=== PATIENT | female | born 1950 | race Asian ===

== ENCOUNTER 2016-08-15 14:45 | Inpatient (IN) | payer MEDICARE, MEDICAID ==
[~2016-08-15] VITALS: Ht 154.9 cm; Wt 57.5 kg
[~2016-08-15 14:45] MED LIST: ACAR50TA11 PO; AMLO-512 PO; ATOR40TA28 PO; DOXA2TAB PO; FERR-72 PO; FURO40 PO; KRIL500C PO; METO25 PO; NATE120 PO; PHOSLOC PO
[2016-08-15] MEDS ORDERED: ASPI81 PO (15:06)
[2016-08-15 15:21] LABS: GLUCOSE,POINT OF CARE 247 MG/DL (70-110)
[2016-08-15 15:34] LABS: BASOPHILS % (AUTO) 0.2 % (0.0-2.0); EOSINOPHILS % (AUTO) 0 % (1.0-6.0); HEMATOCRIT 22.1 % (36-46); HEMOGLOBIN 7.3 g/dL (12.0-16.0); LYMPHOCYTES # (AUTO) 0.6 K/uL (1.0-4.8); LYMPHOCYTES % (AUTO) 4.7 % (22.0-44.0); MEAN CORPUSCULAR HEMOGLOBIN 29.7 pg (26.0-34.0); MEAN CORPUSCULAR VOLUME 90 fL (80-100); MONOCYTES # (AUTO) 0.8 K/uL (0.1-1.0); MONOCYTES % (AUTO) 6.6 % (2.0-9.0); NEUTROPHILS # (AUTO) 11.2 K/uL (1.8-7.7); PLATELET COUNT (AUTO) 231 K/uL (150-450); RED BLOOD CELL COUNT(AUTO) 2.46 MIL/uL (4.00-5.20); WHITE BLOOD COUNT (AUTO) 12.7 K/uL (4.5-11.0)
[2016-08-15 15:37] LABS: NEUTROPHILS % (AUTO) 88.5 % (40.0-70.0)
[2016-08-15 15:47] LABS: PROTHROMBIN TIME 10.2 SEC (9.4-11.6)
[2016-08-15 15:49] LABS: ANION GAP 16 mmol/L (8-16); CARBON DIOXIDE 19 mmol/L (22-29); CHLORIDE 99 mmol/L (98-107); CREATININE 5.57 mg/dL (0.60-1.30); GLOMERULAR FILTR. RATE CALC 8 mL/min (>60); POTASSIUM 4.5 mmol/L (3.5-5.1); SODIUM SERUM 134 mmol/L (136-145); UREA NITROGEN, BLOOD 89 mg/dL (7-18)
[2016-08-15] MEDS ORDERED: FUROSEMIDE 40 MG/4 ML VIAL IVP ONE (16:00)
[2016-08-15 16:13] LABS: ALANINE AMINOTRANSFERASE 35 U/L (12-78); ASPARTATE AMINOTRANSFERASE 26 U/L (15-37); BILIRUBIN,TOTAL 0.6 mg/dL (0.1-1.0); CREATINE KINASE MB 4.8 ng/mL (0-5); CREATINE KINASE, TOTAL 191 U/L (26-192); TOTAL PROTEIN, SERUM 7.6 g/dL (6.4-8.2)
[2016-08-15] MEDS ORDERED: PANTOPRAZOLE SODIUM 40 MG/VIAL IVP ONE (16:15)
[2016-08-15 16:27] LABS: ABG A-A DIFF O2 123.3 mmHg (10-20.0); ABG BASE EXCESS -6.5 mmol/L (-2.0-3.0); ABG HCO3 19.3 mmol/L (22.0-26.0); ABG OXYHEMOGLOBIN 72.3 % (94.0-100.0); ABG PCO2 31 mmHg (35-45); ABG PH 7.395 (7.35-7.450); TEMPERATURE, FAHRENHEIT, BG 98.6 FAHREN (96.0-98.6)
[2016-08-15 17:00] LABS: APPEARANCE,URINE CLOUDY (CLEAR); GLUCOSE, URINE (UA) 250 mg/dL (NEGATIVE); KETONES,URINE NEGATIVE (NEGATIVE); LEUKOCYTE ESTERASE ,URINE SMALL (NEGATIVE); OCCULT BLOOD,URINE MODERATE (NEGATIVE); PH,URINE 5.5 (5.0-8.0); PROTEIN,URINE SEE CONFIRM (NEGATIVE)
[2016-08-15 17:38] LABS: WBC,URINE 51-100 /HPF (0-5)
[2016-08-15 17:39] LABS: SULFOSALICYLIC ACID,URINE 2+ (Negative)
[2016-08-15] MEDS ORDERED: SODIUM CHLORIDE 0.9% 500 ML IV ONE (18:25)
[2016-08-15] MEDS ORDERED: ALBUTEROL SULFATE 2.5 MG/0.5 ML NEB SOLUTION NEB PRN (18:30)
[2016-08-15] MEDS ORDERED: BISACODYL 10 MG RECTAL RECTAL SUPPOSITORY PR PRN (18:30)
[2016-08-15] MEDS ORDERED: ONDANSETRON HCL 4 MG/2 ML VIAL IVP PRN (18:30)
[2016-08-15] MEDS ORDERED: ZOLPIDEM TARTRATE 5 MG TABLET PO PRN (18:30)
[2016-08-15] MEDS ORDERED: IPRATROPIUM BROMIDE 0.5 MG/2.5 ML NEB SOLUTION NEB PRN (18:30)
[2016-08-15] MEDS ORDERED: MAGNESIUM HYDROXIDE SUSPENSION 30 ML UDCUP PO PRN (18:30)
[2016-08-15] MEDS ORDERED: ACETAMINOPHEN 325 MG TABLET PO PRN (18:45)
[2016-08-15] MEDS ORDERED: HEPARIN SODIUM,PORCINE 5,000 UNITS/ML VIAL IVP PRN ×3 (18:45→19:49)
[2016-08-15] MEDS ORDERED: DEXTROSE 50%-WATER 25 GM/50 ML SYRINGE IVP PRN (18:45)
[2016-08-15] MEDS ORDERED: MORPHINE SULFATE 2 MG/ML SYRINGE IVP PRN ×2 (18:45)
[2016-08-15] MEDS ORDERED: HEPARIN SODIUM,PORCINE 5,000 UNITS/ML VIAL IVP ONE (18:45)
[2016-08-15 18:54] VITALS: BP 180/80
[2016-08-15 19:15] VITALS: BP 155/77
[2016-08-15] MEDS: NITROGLYCERIN 2% (1 GM=INCH) PACKET TP SCH (19:19)
[2016-08-15] MEDS: CefTRIAXone 1 GM/DEXTROSE 50 ML IV SCH (19:26)
[2016-08-15 19:30] VITALS: BP 163/80
[2016-08-15] MEDS: HEPARIN SODIUM 25000 UNITS/D5W 250 ML IV PRN (19:59)
[2016-08-15 20:00] VITALS: BP 156/78
[2016-08-15] MEDS: ATORVASTATIN CALCIUM 40 MG TABLET PO SCH (21:00)
[2016-08-15 21:20] LABS: HEMOGLOBIN 8.9 g/dL (12.0-16.0)
[2016-08-15 21:58] LABS: CREATINE KINASE MB 7.6 ng/mL (0-5)
[2016-08-15] MEDS ORDERED: NITROGLYCERIN 50 MG/D5% WATER 250 ML ONE (22:52)
[2016-08-15] MEDS: METOPROLOL TARTRATE 25 MG TABLET PO SCH (23:06)
[2016-08-15] MEDS: NITROGLYCERIN 50 MG/D5% WATER 250 ML IV PRN (23:07)
[2016-08-16] VITALS: BP 151/53
[2016-08-16] MEDS: NITROGLYCERIN 2% (1 GM=INCH) PACKET TP SCH ×5 (00:58→23:25)
[2016-08-16 03:37] LABS: GLUCOSE COMMENT 1 Received Meds; GLUCOSE,POINT OF CARE 192 MG/DL (70-110)
[2016-08-16 04:00] VITALS: BP 163/71
[2016-08-16] MEDS: METOPROLOL TARTRATE 25 MG TABLET PO SCH ×2 (05:46→21:29)
[2016-08-16] MEDS: INSULIN ASPART 100 UNITS/ML SQ PRN (05:50)
[2016-08-16 05:54] LABS: BASOPHILS % (AUTO) 0.5 % (0.0-2.0); EOSINOPHILS % (AUTO) 0 % (1.0-6.0); HEMATOCRIT 23.2 % (36-46); HEMOGLOBIN 7.7 g/dL (12.0-16.0); LYMPHOCYTES # (AUTO) 0.6 K/uL (1.0-4.8); LYMPHOCYTES % (AUTO) 3.4 % (22.0-44.0); MEAN CORPUSCULAR HEMOGLOBIN 29.9 pg (26.0-34.0); MEAN CORPUSCULAR HGB CONC 33.2 G/dL (31.0-37.0); MEAN CORPUSCULAR VOLUME 90 fL (80-100); MONOCYTES # (AUTO) 1.1 K/uL (0.1-1.0); MONOCYTES % (AUTO) 6.2 % (2.0-9.0); NEUTROPHILS # (AUTO) 15.4 K/uL (1.8-7.7); PLATELET COUNT (AUTO) 193 K/uL (150-450); RED BLOOD CELL COUNT(AUTO) 2.58 MIL/uL (4.00-5.20); WHITE BLOOD COUNT (AUTO) 17.1 K/uL (4.5-11.0)
[2016-08-16 05:58] LABS: GLUCOSE COMMENT 1 Received Meds; GLUCOSE,POINT OF CARE 214 MG/DL (70-110)
[2016-08-16 06:00] LABS: INR 1.1 (0.9-1.1); PROTHROMBIN TIME 11.1 SEC (9.4-11.6)
[2016-08-16 06:17] LABS: NEUTROPHILS % (AUTO) 89.9 % (40.0-70.0)
[2016-08-16 06:40] LABS: CALCIUM, TOTAL 8.4 mg/dL (8.8-10.5); CHOL/HDL RATIO 2.9 (3.9-5.7); CREATINE KINASE MB 6.8 ng/mL (0-5); CREATININE 5.74 mg/dL (0.60-1.30); MAGNESIUM 2.2 mg/dL (1.80-2.40); POTASSIUM 4.2 mmol/L (3.5-5.1); THYROID STIMULATING HORMONE 1.76 uIU/mL (0.36-3.74)
[2016-08-16 07:43] LABS: ALBUMIN 2.7 g/dL (3.4-5.0); BILIRUBIN,TOTAL 0.8 mg/dL (0.1-1.0)
[2016-08-16 07:47] LABS: HEMOGLOBIN A1C 7.4 % (4.5-6.2)
[2016-08-16 08:00] VITALS: BP 127/69
[2016-08-16 08:15] LABS: ABG A-A DIFF O2 602.4 mmHg (10-20.0); ABG BASE EXCESS -6.8 mmol/L (-2.0-3.0); ABG HCO3 19.5 mmol/L (22.0-26.0); ABG OXYHEMOGLOBIN 94.2 % (94.0-100.0); ABG PCO2 30 mmHg (35-45); ABG PH 7.394 (7.35-7.450); TEMPERATURE, FAHRENHEIT, BG 98.6 FAHREN (96.0-98.6)
[2016-08-16 08:17] LABS: ALLEN TEST, BLOOD GAS Positive
[2016-08-16] MEDS: NITROGLYCERIN 50 MG/D5% WATER 250 ML IV PRN ×3 (08:20→23:26)
[2016-08-16] MEDS: ASPIRIN 81 MG CHEWABLE TABLET PO SCH (08:28)
[2016-08-16] MEDS ORDERED: FUROSEMIDE 40 MG/4 ML VIAL IVP ONE ×2 (09:00→12:00)
[2016-08-16] MEDS ORDERED: PANTOPRAZOLE SODIUM 40 MG/VIAL IVP SCH ×2 (09:00)
[2016-08-16] MEDS ORDERED: FUROSEMIDE 20 MG/2 ML VIAL IVP SCH (09:00)
[2016-08-16] MEDS ORDERED: SODIUM CHLORIDE 0.9% 500 ML IV ONE (09:22)
[2016-08-16] MEDS: ACETYLCYSTEINE 20% 200 MG/ML 4 ML ORAL SOLUTION PO SCH ×2 (10:15→21:36)
[2016-08-16] MEDS ORDERED: HEPARIN SODIUM 1000 UNITS/NS 500 ML ONE ×2 (10:41→10:42)
[2016-08-16] MEDS ORDERED: IOHEXOL 300 MG/ML 150 ML VIAL ONE (10:41)
[2016-08-16] MEDS ORDERED: LIDOCAINE HCL/PF 1% 30 ML VIAL ONE (10:41)
[2016-08-16] MEDS ORDERED: SODIUM BICARBONATE 50 MEQ/50 ML VIAL ONE (10:41)
[2016-08-16] MEDS: EPOETIN ALFA 10,000 UNITS/ML VIAL SQ SCH (11:46)
[2016-08-16 12:00] VITALS: BP 142/67
[2016-08-16] MEDS ORDERED: HEPARIN SODIUM,PORCINE 1,000 UNITS/ML VIAL IVP ONE (12:00)
[2016-08-16] MEDS ORDERED: HEPARIN SODIUM,PORCINE 1,000 UNITS/ML VIAL ONE (12:43)
[2016-08-16] MEDS ORDERED: 0.9% SODIUM CHLORIDE 10 ML SYRINGE IVP PRN (13:30)
[2016-08-16 16:00] VITALS: BP 148/114
[2016-08-16 17:44] LABS: CREATINE KINASE MB 6.4 ng/mL (0-5)
[2016-08-16] MEDS ORDERED: SODIUM CHLORIDE 0.9% 250 ML IV ONE (17:58)
[2016-08-16] MEDS: CefTRIAXone 1 GM/DEXTROSE 50 ML IV SCH (18:18)
[2016-08-16] MEDS ORDERED: INSULIN DETEMIR 100 UNITS/ML SQ SCH (21:00)
[2016-08-16] MEDS: PANTOPRAZOLE SODIUM 40 MG/VIAL IVP SCH (21:29)
[2016-08-16] MEDS: ATORVASTATIN CALCIUM 40 MG TABLET PO SCH (21:29)
[2016-08-16] MEDS: FUROSEMIDE 20 MG/2 ML VIAL IVP SCH (21:30)
[2016-08-16] MEDS: HEPARIN SODIUM 25000 UNITS/D5W 250 ML IV PRN (22:59)
[2016-08-17] VITALS (9 sets, daily range): BP systolic 93–149; BP diastolic 50–106
[2016-08-17 05:28] LABS: BASOPHILS % (AUTO) 0.1 % (0.0-2.0); EOSINOPHILS % (AUTO) 0.1 % (1.0-6.0); HEMATOCRIT 26.6 % (36-46); HEMOGLOBIN 8.9 g/dL (12.0-16.0); LYMPHOCYTES # (AUTO) 0.9 K/uL (1.0-4.8); LYMPHOCYTES % (AUTO) 5.7 % (22.0-44.0); MEAN CORPUSCULAR HEMOGLOBIN 29.5 pg (26.0-34.0); MEAN CORPUSCULAR HGB CONC 33.4 G/dL (31.0-37.0); MEAN CORPUSCULAR VOLUME 88 fL (80-100); MONOCYTES # (AUTO) 1.3 K/uL (0.1-1.0); MONOCYTES % (AUTO) 8.6 % (2.0-9.0); NEUTROPHILS # (AUTO) 13.1 K/uL (1.8-7.7); PLATELET COUNT (AUTO) 193 K/uL (150-450); RED CELL DISTRIBUTION WIDTH 14.8 % (11.5-14.5); WHITE BLOOD COUNT (AUTO) 15.3 K/uL (4.5-11.0)
[2016-08-17 05:50] LABS: IRON, SERUM 27 mcg/dL (50-175); TOTAL IRON BINDING CAPACITY 193 mcg/dL (250-450)
[2016-08-17 06:08] LABS: ANION GAP 11 mmol/L (8-16); CALCIUM, TOTAL 8.8 mg/dL (8.8-10.5); CARBON DIOXIDE 27 mmol/L (22-29); CHLORIDE 97 mmol/L (98-107); CREATINE KINASE MB 1.8 ng/mL (0-5); CREATINE KINASE, TOTAL 189 U/L (26-192); CREATININE 4.68 mg/dL (0.60-1.30); GLOMERULAR FILTR. RATE CALC 9 mL/min (>60); PHOSPHORUS 4.8 mg/dL (2.5-4.9); POTASSIUM 4.2 mmol/L (3.5-5.1); SODIUM SERUM 135 mmol/L (136-145); THYROID STIMULATING HORMONE 1.74 uIU/mL (0.36-3.74); UREA NITROGEN, BLOOD 58 mg/dL (7-18)
[2016-08-17] MEDS: NITROGLYCERIN 2% (1 GM=INCH) PACKET TP SCH ×2 (06:26→12:00)
[2016-08-17] MEDS: INSULIN ASPART 100 UNITS/ML SQ PRN ×3 (06:28→21:09)
[2016-08-17 06:50] LABS: NEUTROPHILS % (AUTO) 85.5 % (40.0-70.0)
[2016-08-17] MEDS: NITROGLYCERIN 50 MG/D5% WATER 250 ML IV PRN ×2 (07:06→16:32)
[2016-08-17] MEDS ORDERED: SODIUM CHLORIDE 0.9% 2,000 ML IV ONE (07:54)
[2016-08-17] MEDS ORDERED: HEPARIN SODIUM,PORCINE 1,000 UNITS/ML VIAL IVP ONE ×3 (08:45→17:49)
[2016-08-17] MEDS: PANTOPRAZOLE SODIUM 40 MG/VIAL IVP SCH ×2 (08:48→21:05)
[2016-08-17] MEDS: FUROSEMIDE 20 MG/2 ML VIAL IVP SCH ×2 (08:48→21:05)
[2016-08-17] MEDS: ASPIRIN 81 MG CHEWABLE TABLET PO SCH (08:49)
[2016-08-17] MEDS: METOPROLOL TARTRATE 25 MG TABLET PO SCH ×2 (09:00→21:05)
[2016-08-17 09:32] LABS: GLUCOSE,POINT OF CARE 128 MG/DL (70-110)
[2016-08-17] MEDS ORDERED: SODIUM CHLORIDE 0.9% 250 ML IV ONE ×2 (09:48→16:21)
[2016-08-17 11:07] LABS: GLUCOSE,POINT OF CARE 163 MG/DL (70-110)
[2016-08-17] MEDS: VITAMIN B COMP/VIT C/FOLIC ACID CAPSULE PO SCH (12:00)
[2016-08-17] MEDS: SOD FERRIC GLUC COMPLX/SUCROSE 125 MG in SODIUM CHLORIDE 0.9% 100 ML IV SCH (12:18)
[2016-08-17 14:34] LABS: ABG A-A DIFF O2 108.5 mmHg (10-20.0); ABG BASE EXCESS -0.1 mmol/L (-2.0-3.0); ABG HCO3 24.8 mmol/L (22.0-26.0); ABG OXYHEMOGLOBIN 95.6 % (94.0-100.0); ABG PCO2 33 mmHg (35-45); ABG PH 7.471 (7.35-7.450); ALLEN TEST, BLOOD GAS Positive; TEMPERATURE, FAHRENHEIT, BG 98.1 FAHREN (96.0-98.6)
[2016-08-17] MEDS: HEPARIN SODIUM 25000 UNITS/D5W 250 ML IV PRN (16:32)
[2016-08-17] MEDS: CefTRIAXone 1 GM/DEXTROSE 50 ML IV SCH (18:49)
[2016-08-17] MEDS: ATORVASTATIN CALCIUM 40 MG TABLET PO SCH (21:05)
[2016-08-17] MEDS: INSULIN DETEMIR 100 UNITS/ML SQ SCH (21:06)
[2016-08-18] VITALS: BP 147/69
[2016-08-18 04:00] VITALS: BP 138/79
[2016-08-18 05:55] LABS: BASOPHILS # (AUTO) 0.03 K/uL (0.00-0.20); BASOPHILS % (AUTO) 0.2 % (0.0-2.0); EOSINOPHILS % (AUTO) 2.17 % (1.0-6.0); HEMATOCRIT 30.8 % (36-46); HEMOGLOBIN 10.3 g/dL (12.0-16.0); LYMPHOCYTES # (AUTO) 1.1 K/uL (1.0-4.8); LYMPHOCYTES % (AUTO) 8.2 % (22.0-44.0); MEAN CORPUSCULAR HEMOGLOBIN 29.5 pg (26.0-34.0); MEAN CORPUSCULAR HGB CONC 33.5 G/dL (31.0-37.0); MEAN CORPUSCULAR VOLUME 88 fL (80-100); MONOCYTES # (AUTO) 1.6 K/uL (0.1-1.0); MONOCYTES % (AUTO) 11.4 % (2.0-9.0); NEUTROPHILS # (AUTO) 10.8 K/uL (1.8-7.7); PLATELET COUNT (AUTO) 194 K/uL (150-450); RED BLOOD CELL COUNT(AUTO) 3.51 MIL/uL (4.00-5.20); RED CELL DISTRIBUTION WIDTH 15.2 % (11.5-14.5); WHITE BLOOD COUNT (AUTO) 13.8 K/uL (4.5-11.0)
[2016-08-18 06:34] LABS: ANION GAP 12 mmol/L (8-16); CALCIUM, TOTAL 8.9 mg/dL (8.8-10.5); CARBON DIOXIDE 26 mmol/L (22-29); CHLORIDE 96 mmol/L (98-107); CREATINE KINASE MB 0.8 ng/mL (0-5); CREATINE KINASE, TOTAL 97 U/L (26-192); CREATININE 4.22 mg/dL (0.60-1.30); GLOMERULAR FILTR. RATE CALC 11 mL/min (>60); PHOSPHORUS 4.5 mg/dL (2.5-4.9); POTASSIUM 3.4 mmol/L (3.5-5.1); SODIUM SERUM 134 mmol/L (136-145); UREA NITROGEN, BLOOD 45 mg/dL (7-18)
[2016-08-18 07:45] LABS: B-TYPE NATRIURETIC PEPTIDE 174 pg/mL (0-100)
[2016-08-18 08:00] VITALS: BP 163/78
[2016-08-18] MEDS ORDERED: SODIUM CHLORIDE 0.9% 100 ML ONE (08:39)
[2016-08-18] MEDS: VITAMIN B COMP/VIT C/FOLIC ACID CAPSULE PO SCH (08:42)
[2016-08-18] MEDS: METOPROLOL TARTRATE 25 MG TABLET PO SCH (08:42)
[2016-08-18] MEDS: FUROSEMIDE 20 MG/2 ML VIAL IVP SCH ×2 (08:42→21:39)
[2016-08-18] MEDS: PANTOPRAZOLE SODIUM 40 MG/VIAL IVP SCH ×2 (08:42→21:39)
[2016-08-18] MEDS: NITROGLYCERIN 50 MG/D5% WATER 250 ML IV PRN (08:43)
[2016-08-18] MEDS: ASPIRIN 81 MG CHEWABLE TABLET PO SCH (09:00)
[2016-08-18] MEDS: SOD FERRIC GLUC COMPLX/SUCROSE 125 MG in SODIUM CHLORIDE 0.9% 100 ML IV SCH (11:44)
[2016-08-18] MEDS: ACETYLCYSTEINE 20% 200 MG/ML 4 ML ORAL SOLUTION PO SCH ×2 (11:44→21:40)
[2016-08-18] MEDS: INSULIN ASPART 100 UNITS/ML SQ PRN ×3 (11:44→21:41)
[2016-08-18 11:47] LABS: GLUCOSE,POINT OF CARE 102 MG/DL (70-110)
[2016-08-18 11:47] LABS: GLUCOSE COMMENT 1 Received Meds; GLUCOSE,POINT OF CARE 212 MG/DL (70-110)
[2016-08-18 11:47] LABS: GLUCOSE COMMENT 1 Received Meds; GLUCOSE,POINT OF CARE 185 MG/DL (70-110)
[2016-08-18 12:00] VITALS: BP 161/76
[2016-08-18 16:00] VITALS: BP 145/65
[2016-08-18] MEDS: HEPARIN SODIUM 25000 UNITS/D5W 250 ML IV PRN (16:26)
[2016-08-18] MEDS: CefTRIAXone 1 GM/DEXTROSE 50 ML IV SCH (18:04)
[2016-08-18] MEDS: ATORVASTATIN CALCIUM 40 MG TABLET PO SCH (21:40)
[2016-08-18] MEDS: METOPROLOL TARTRATE 50 MG TABLET PO SCH (21:40)
[2016-08-18] MEDS: INSULIN DETEMIR 100 UNITS/ML SQ SCH (21:43)
[2016-08-19] MEDS: NITROGLYCERIN 50 MG/D5% WATER 250 ML IV PRN (00:26)
[2016-08-19 05:05] LABS: BASOPHILS % (AUTO) 0.2 % (0.0-2.0); EOSINOPHILS % (AUTO) 2.9 % (1.0-6.0); HEMATOCRIT 31.3 % (36-46); HEMOGLOBIN 10.4 g/dL (12.0-16.0); LYMPHOCYTES # (AUTO) 1.2 K/uL (1.0-4.8); LYMPHOCYTES % (AUTO) 11.9 % (22.0-44.0); MEAN CORPUSCULAR HEMOGLOBIN 29.6 pg (26.0-34.0); MEAN CORPUSCULAR HGB CONC 33.2 G/dL (31.0-37.0); MEAN CORPUSCULAR VOLUME 89 fL (80-100); MONOCYTES # (AUTO) 1.4 K/uL (0.1-1.0); MONOCYTES % (AUTO) 13.6 % (2.0-9.0); NEUTROPHILS # (AUTO) 7.4 K/uL (1.8-7.7); NEUTROPHILS % (AUTO) 71.4 % (40.0-70.0); PLATELET COUNT (AUTO) 206 K/uL (150-450); RED BLOOD CELL COUNT(AUTO) 3.51 MIL/uL (4.00-5.20); RED CELL DISTRIBUTION WIDTH 14.5 % (11.5-14.5); WHITE BLOOD COUNT (AUTO) 10.4 K/uL (4.5-11.0)
[2016-08-19 05:21] LABS: ANION GAP 13 mmol/L (8-16); CALCIUM, TOTAL 8.4 mg/dL (8.8-10.5); CARBON DIOXIDE 26 mmol/L (22-29); CHLORIDE 96 mmol/L (98-107); CREATINE KINASE, TOTAL 70 U/L (26-192); CREATININE 5.86 mg/dL (0.60-1.30); GLOMERULAR FILTR. RATE CALC 7 mL/min (>60); PHOSPHORUS 4.9 mg/dL (2.5-4.9); POTASSIUM 3.5 mmol/L (3.5-5.1); SODIUM SERUM 135 mmol/L (136-145); UREA NITROGEN, BLOOD 69 mg/dL (7-18)
[2016-08-19 07:04] LABS: B-TYPE NATRIURETIC PEPTIDE 217 pg/mL (0-100)
[2016-08-19] MEDS: VITAMIN B COMP/VIT C/FOLIC ACID CAPSULE PO SCH (09:00)
[2016-08-19] MEDS: METOPROLOL TARTRATE 50 MG TABLET PO SCH ×2 (09:00→21:00)
[2016-08-19] MEDS: ASPIRIN 81 MG CHEWABLE TABLET PO SCH (09:00)
[2016-08-19] MEDS: PANTOPRAZOLE SODIUM 40 MG/VIAL IVP SCH ×2 (09:02→21:03)
[2016-08-19] MEDS: EPOETIN ALFA 10,000 UNITS/ML VIAL SQ SCH (09:02)
[2016-08-19] MEDS: FUROSEMIDE 20 MG/2 ML VIAL IVP SCH ×2 (09:04→21:02)
[2016-08-19] MEDS ORDERED: HEPARIN SODIUM 1000 UNITS/NS 1,000 ML ONE (10:41)
[2016-08-19] MEDS ORDERED: IOHEXOL 300 MG/ML 150 ML VIAL ONE (10:41)
[2016-08-19] MEDS ORDERED: LIDOCAINE HCL/PF 1% 30 ML VIAL ONE (10:41)
[2016-08-19] MEDS ORDERED: SODIUM BICARBONATE 50 MEQ/50 ML VIAL ONE (10:41)
[2016-08-19 11:08] VITALS: BP 139/69
[2016-08-19] MEDS ORDERED: FentaNYL CITRATE-PF 100 MCG/2 ML VIAL ONE (11:17)
[2016-08-19] MEDS ORDERED: NITROGLYCERIN 50 MG/D5% WATER 250 ML ONE (11:18)
[2016-08-19] MEDS ORDERED: MIDAZOLAM HCL 2 MG/2 ML VIAL ONE (11:18)
[2016-08-19] MEDS ORDERED: VERAPAMIL HCL 2.5 MG/ML 2 ML VIAL ONE (11:18)
[2016-08-19] MEDS ORDERED: SODIUM CHLORIDE 0.9% 2,000 ML IV ONE (11:26)
[2016-08-19] MEDS ORDERED: HEPARIN SODIUM 1000 UNITS/NS 1,000 ML IARTER ONE (11:47)
[2016-08-19] MEDS ORDERED: SODIUM CHLORIDE 0.9% 500 ML IV ONE (11:47)
[2016-08-19] MEDS ORDERED: IOHEXOL 300 MG/ML 150 ML VIAL IARTER ONE (12:00)
[2016-08-19] MEDS ORDERED: LIDOCAINE 1% 30 ML/SOD BICARB 8.4% 4 ML SQ ONE (12:00)
[2016-08-19] MEDS ORDERED: HydrALAZINE HCL 20 MG/ML VIAL ONE (12:02)
[2016-08-19] MEDS ORDERED: HydrALAZINE HCL 20 MG/ML VIAL IVP ONE (12:15)
[2016-08-19] MEDS ORDERED: LISINOPRIL 5 MG TABLET PO ONE (16:15)
[2016-08-19] MEDS ORDERED: SODIUM CHLORIDE 0.9% 250 ML IV ONE (17:04)
[2016-08-19 17:33] LABS: GLUCOSE,POINT OF CARE 157 MG/DL (70-110)
[2016-08-19 17:33] LABS: GLUCOSE,POINT OF CARE 153 MG/DL (70-110)
[2016-08-19 17:33] LABS: GLUCOSE,POINT OF CARE 118 MG/DL (70-110)
[2016-08-19 17:33] LABS: GLUCOSE,POINT OF CARE 101 MG/DL (70-110)
[2016-08-19] MEDS: SOD FERRIC GLUC COMPLX/SUCROSE 125 MG in SODIUM CHLORIDE 0.9% 100 ML IV SCH (18:05)
[2016-08-19] MEDS: CefTRIAXone 1 GM/DEXTROSE 50 ML IV SCH (18:05)
[2016-08-19] MEDS ORDERED: HEPARIN SODIUM,PORCINE 1,000 UNITS/ML VIAL IVP ONE (18:27)
[2016-08-19] MEDS ORDERED: LISINOPRIL 5 MG TABLET PO SCH (21:00)
[2016-08-19] MEDS: ATORVASTATIN CALCIUM 40 MG TABLET PO SCH (21:02)
[2016-08-19] MEDS: INSULIN ASPART 100 UNITS/ML SQ PRN (21:08)
[2016-08-19] MEDS: INSULIN DETEMIR 100 UNITS/ML SQ SCH (21:12)
[2016-08-20 00:17] LABS: GLUCOSE COMMENT 1 Received Meds; GLUCOSE,POINT OF CARE 115 MG/DL (70-110)
[2016-08-20 00:17] LABS: GLUCOSE COMMENT 1 Received Meds; GLUCOSE,POINT OF CARE 171 MG/DL (70-110)
[2016-08-20 00:18] LABS: GLUCOSE COMMENT 1 Received Meds; GLUCOSE,POINT OF CARE 218 MG/DL (70-110)
[2016-08-20 00:22] LABS: GLUCOSE COMMENT 1 Received Meds; GLUCOSE,POINT OF CARE 230 MG/DL (70-110)
[2016-08-20 00:22] LABS: GLUCOSE,POINT OF CARE 178 MG/DL (70-110)
[2016-08-20] MEDS: NITROGLYCERIN 50 MG/D5% WATER 250 ML IV PRN (00:49)
[2016-08-20 05:31] LABS: CALCIUM, TOTAL 8.9 mg/dL (8.8-10.5); CREATININE 4.28 mg/dL (0.60-1.30); MAGNESIUM 1.7 mg/dL (1.80-2.40); PHOSPHORUS 5.5 mg/dL (2.5-4.9); POTASSIUM 3.9 mmol/L (3.5-5.1)
[2016-08-20] MEDS ORDERED: MAGNESIUM SULFATE 1 GM in DEXTROSE 5%-WATER 50 ML IV ONE (08:00)
[2016-08-20] MEDS: ASPIRIN 325 MG TABLET PO SCH (08:23)
[2016-08-20] MEDS: VITAMIN B COMP/VIT C/FOLIC ACID CAPSULE PO SCH (08:23)
[2016-08-20] MEDS: PANTOPRAZOLE SODIUM 40 MG/VIAL IVP SCH ×2 (08:23→20:22)
[2016-08-20] MEDS: FUROSEMIDE 20 MG/2 ML VIAL IVP SCH ×2 (08:24→20:21)
[2016-08-20] MEDS: METOPROLOL TARTRATE 50 MG TABLET PO SCH ×2 (08:25→21:21)
[2016-08-20 08:37] LABS: GLUCOSE,POINT OF CARE 130 MG/DL (70-110)
[2016-08-20] MEDS: LISINOPRIL 10 MG TABLET PO SCH ×2 (08:45→21:21)
[2016-08-20] MEDS: SOD FERRIC GLUC COMPLX/SUCROSE 125 MG in SODIUM CHLORIDE 0.9% 100 ML IV SCH (11:43)
[2016-08-20] MEDS: INSULIN ASPART 100 UNITS/ML SQ PRN ×3 (11:44→21:25)
[2016-08-20] MEDS: ISOSORBIDE MONONITRATE 30 MG ER TABLET PO SCH (12:01)
[2016-08-20] MEDS ORDERED: FentaNYL CITRATE-PF 100 MCG/2 ML VIAL ONE (13:49)
[2016-08-20] MEDS ORDERED: MIDAZOLAM HCL 2 MG/2 ML VIAL ONE (13:50)
[2016-08-20] MEDS ORDERED: LIDOCAINE HCL 1%/EPI 1:200,000/PF 10 ML VIAL ONE ×2 (13:50→15:01)
[2016-08-20] MEDS ORDERED: HEPARIN SODIUM,PORCINE 1,000 UNITS/ML 10 ML VIAL ONE (13:50)
[2016-08-20] MEDS ORDERED: HEPARIN SODIUM 1000 UNITS/NS 0 ML ONE (13:50)
[2016-08-20] MEDS ORDERED: FentaNYL CITRATE-PF 100 MCG/2 ML VIAL IVP ONE (14:36)
[2016-08-20] MEDS ORDERED: MIDAZOLAM HCL 2 MG/2 ML VIAL IVP ONE (14:36)
[2016-08-20 16:05] VITALS: BP 164/70
[2016-08-20 19:21] VITALS: BP 143/87
[2016-08-20] MEDS ORDERED: SODIUM CHLORIDE 0.9% 100 ML ONE (20:06)
[2016-08-20] MEDS: ATORVASTATIN CALCIUM 40 MG TABLET PO SCH (20:21)
[2016-08-20] MEDS: OXYGEN THERAPY IH SCH (20:22)
[2016-08-20] MEDS: CefTRIAXone 1 GM/DEXTROSE 50 ML IV SCH (20:22)
[2016-08-20 21:00] VITALS: BP 182/74
[2016-08-20] MEDS: INSULIN DETEMIR 100 UNITS/ML SQ SCH (21:25)
[2016-08-20 23:43] VITALS: BP 165/74
[2016-08-21] VITALS (7 sets, daily range): BP systolic 117–182; BP diastolic 60–86
[2016-08-21 06:34] LABS: EOSINOPHILS % (AUTO) 2.8 % (1.0-6.0); HEMATOCRIT 34.1 % (36-46); LYMPHOCYTES # (AUTO) 0.8 K/uL (1.0-4.8); LYMPHOCYTES % (AUTO) 7.4 % (22.0-44.0); MEAN CORPUSCULAR HEMOGLOBIN 29.1 pg (26.0-34.0); MEAN CORPUSCULAR HGB CONC 32.3 G/dL (31.0-37.0); MEAN CORPUSCULAR VOLUME 90 fL (80-100); MONOCYTES # (AUTO) 1.3 K/uL (0.1-1.0); MONOCYTES % (AUTO) 11.4 % (2.0-9.0); NEUTROPHILS # (AUTO) 8.8 K/uL (1.8-7.7); NEUTROPHILS % (AUTO) 78.4 % (40.0-70.0); PLATELET COUNT (AUTO) 192 K/uL (150-450); RED BLOOD CELL COUNT(AUTO) 3.78 MIL/uL (4.00-5.20); RED CELL DISTRIBUTION WIDTH 14.7 % (11.5-14.5); WHITE BLOOD COUNT (AUTO) 11.2 K/uL (4.5-11.0)
[2016-08-21 06:52] LABS: CALCIUM, TOTAL 8.5 mg/dL (8.8-10.5); CREATININE 6.81 mg/dL (0.60-1.30); POTASSIUM 3.9 mmol/L (3.5-5.1)
[2016-08-21] MEDS: EPOETIN ALFA 10,000 UNITS/ML VIAL SQ SCH (08:48)
[2016-08-21] MEDS: OXYGEN THERAPY IH SCH ×2 (08:48→20:46)
[2016-08-21] MEDS: METOPROLOL TARTRATE 50 MG TABLET PO SCH ×2 (09:00→20:47)
[2016-08-21] MEDS: LISINOPRIL 20 MG TABLET PO SCH ×2 (09:00→23:58)
[2016-08-21] MEDS: FUROSEMIDE 20 MG/2 ML VIAL IVP SCH ×2 (09:00→20:47)
[2016-08-21] MEDS: ISOSORBIDE MONONITRATE 30 MG ER TABLET PO SCH (09:00)
[2016-08-21] MEDS ORDERED: HEPARIN SODIUM,PORCINE 1,000 UNITS/ML VIAL IVP ONE ×3 (10:32→17:45)
[2016-08-21] MEDS ORDERED: LIDOCAINE HCL 1%/EPI 1:200,000/PF 10 ML VIAL ONE (11:08)
[2016-08-21] MEDS ORDERED: HEPARIN SODIUM 1000 UNITS/NS 500 ML ONE (11:08)
[2016-08-21] MEDS ORDERED: FentaNYL CITRATE-PF 100 MCG/2 ML VIAL ONE (11:22)
[2016-08-21] MEDS ORDERED: HEPARIN SODIUM,PORCINE 1,000 UNITS/ML 10 ML VIAL ONE (11:23)
[2016-08-21] MEDS ORDERED: MIDAZOLAM HCL 2 MG/2 ML VIAL ONE (11:23)
[2016-08-21] MEDS ORDERED: MIDAZOLAM HCL 2 MG/2 ML VIAL IVP ONE (11:36)
[2016-08-21] MEDS ORDERED: FentaNYL CITRATE-PF 100 MCG/2 ML VIAL IVP ONE (11:36)
[2016-08-21] MEDS: ASPIRIN 325 MG TABLET PO SCH (12:55)
[2016-08-21] MEDS: SOD FERRIC GLUC COMPLX/SUCROSE 125 MG in SODIUM CHLORIDE 0.9% 100 ML IV SCH (12:55)
[2016-08-21] MEDS: PANTOPRAZOLE SODIUM 40 MG/VIAL IVP SCH ×2 (12:55→20:47)
[2016-08-21] MEDS ORDERED: MANNITOL 25%-12.5 GM/50 ML VIAL IVP PRN (17:45)
[2016-08-21] MEDS ORDERED: SODIUM CHLORIDE 0.9% 1,000 ML IV ONE (18:14)
[2016-08-21] MEDS: VITAMIN B COMP/VIT C/FOLIC ACID CAPSULE PO SCH (18:23)
[2016-08-21] MEDS: CefTRIAXone 1 GM/DEXTROSE 50 ML IV SCH (18:24)
[2016-08-21] MEDS: ATORVASTATIN CALCIUM 40 MG TABLET PO SCH (20:47)
[2016-08-21] MEDS: INSULIN DETEMIR 100 UNITS/ML SQ SCH (21:21)
[2016-08-21] MEDS: INSULIN ASPART 100 UNITS/ML SQ PRN (21:22)
[2016-08-22 04:30] VITALS: BP 151/73
[2016-08-22] MEDS: INSULIN ASPART 100 UNITS/ML SQ PRN ×4 (05:58→21:32)
[2016-08-22 06:28] LABS: BASOPHILS % (AUTO) 0.1 % (0.0-2.0); EOSINOPHILS % (AUTO) 2.1 % (1.0-6.0); HEMATOCRIT 34.9 % (36-46); HEMOGLOBIN 11.4 g/dL (12.0-16.0); LYMPHOCYTES # (AUTO) 0.9 K/uL (1.0-4.8); LYMPHOCYTES % (AUTO) 5.4 % (22.0-44.0); MEAN CORPUSCULAR HEMOGLOBIN 29.4 pg (26.0-34.0); MEAN CORPUSCULAR HGB CONC 32.7 G/dL (31.0-37.0); MEAN CORPUSCULAR VOLUME 90 fL (80-100); MONOCYTES # (AUTO) 1.4 K/uL (0.1-1.0); MONOCYTES % (AUTO) 8.6 % (2.0-9.0); NEUTROPHILS # (AUTO) 13.4 K/uL (1.8-7.7); NEUTROPHILS % (AUTO) 83.8 % (40.0-70.0); PLATELET COUNT (AUTO) 205 K/uL (150-450); RED BLOOD CELL COUNT(AUTO) 3.88 MIL/uL (4.00-5.20); RED CELL DISTRIBUTION WIDTH 14.7 % (11.5-14.5)
[2016-08-22 07:33] VITALS: BP 142/69
[2016-08-22] MEDS: VITAMIN B COMP/VIT C/FOLIC ACID CAPSULE PO SCH (09:38)
[2016-08-22] MEDS: METOPROLOL TARTRATE 50 MG TABLET PO SCH ×2 (09:38→21:34)
[2016-08-22] MEDS: PANTOPRAZOLE SODIUM 40 MG/VIAL IVP SCH ×2 (09:38→21:34)
[2016-08-22] MEDS: LISINOPRIL 20 MG TABLET PO SCH ×2 (09:38→21:34)
[2016-08-22] MEDS: ISOSORBIDE MONONITRATE 30 MG ER TABLET PO SCH (09:38)
[2016-08-22] MEDS: ASPIRIN 325 MG TABLET PO SCH (09:38)
[2016-08-22] MEDS: FUROSEMIDE 20 MG/2 ML VIAL IVP SCH ×2 (09:41→21:33)
[2016-08-22] MEDS: OXYGEN THERAPY IH SCH ×2 (09:43→20:00)
[2016-08-22 11:18] VITALS: BP 148/65
[2016-08-22] MEDS ORDERED: ASPI325T PO (11:34)
[2016-08-22] MEDS ORDERED: CEFX1I IV (11:35)
[2016-08-22] MEDS ORDERED: EPOE10003 SQ (11:36)
[2016-08-22] MEDS ORDERED: FURO40I IV (11:36)
[2016-08-22] MEDS ORDERED: INSU100V12 SQ (11:37)
[2016-08-22] MEDS ORDERED: ISOS30TA6 PO (11:37)
[2016-08-22] MEDS ORDERED: LISI-662 PO (11:43)
[2016-08-22] MEDS ORDERED: METO50 PO (11:44)
[2016-08-22] MEDS ORDERED: PANT40I IV (11:44)
[2016-08-22] MEDS ORDERED: SOD62.5V IV (11:47)
[2016-08-22] MEDS ORDERED: FOLI1CAP2 PO (11:48)
[2016-08-22] MEDS: SOD FERRIC GLUC COMPLX/SUCROSE 125 MG in SODIUM CHLORIDE 0.9% 100 ML IV SCH (12:04)
[2016-08-22 13:01] LABS: GLUCOSE COMMENT 1 Received Meds; GLUCOSE,POINT OF CARE 162 MG/DL (70-110)
[2016-08-22 15:45] VITALS: BP 140/66
[2016-08-22] MEDS: CefTRIAXone 1 GM/DEXTROSE 50 ML IV SCH (18:09)
[2016-08-22 19:27] VITALS: BP 163/69
[2016-08-22 21:26] LABS: APPEARANCE,URINE CLEAR (CLEAR); GLUCOSE, URINE (UA) 100 mg/dL (NEGATIVE); KETONES,URINE NEGATIVE (NEGATIVE); LEUKOCYTE ESTERASE ,URINE NEGATIVE (NEGATIVE); OCCULT BLOOD,URINE SMALL (NEGATIVE); PROTEIN,URINE SEE CONFIRM (NEGATIVE)
[2016-08-22] MEDS: INSULIN DETEMIR 100 UNITS/ML SQ SCH (21:31)
[2016-08-22 21:33] LABS: ADD UA MICROSCOPIC YES
[2016-08-22] MEDS: ATORVASTATIN CALCIUM 40 MG TABLET PO SCH (21:34)
[2016-08-22 21:37] LABS: SULFOSALICYLIC ACID,URINE 2+ (Negative)
[2016-08-22 21:42] LABS: SQUAMOUS EPITHELIAL CELL,UR Moderate /LPF (None Seen)
[2016-08-22 21:44] LABS: COARSE GRANULAR CASTS,URINE 0-2 /LPF (None Seen)
[2016-08-22 21:51] LABS: RBC,URINE 0-2 /HPF (0-2)
[2016-08-22 23:15] VITALS: BP 147/70
[2016-08-23 04:28] VITALS: BP 144/68
[2016-08-23] MEDS: INSULIN ASPART 100 UNITS/ML SQ PRN ×2 (06:21→13:08)
[2016-08-23 07:32] LABS: GLUCOSE COMMENT 1 Received Meds; GLUCOSE,POINT OF CARE 215 MG/DL (70-110)
[2016-08-23 07:32] LABS: GLUCOSE COMMENT 1 Received Meds; GLUCOSE,POINT OF CARE 198 MG/DL (70-110)
[2016-08-23 07:32] LABS: GLUCOSE COMMENT 1 Received Meds; GLUCOSE,POINT OF CARE 256 MG/DL (70-110)
[2016-08-23 07:32] LABS: GLUCOSE,POINT OF CARE 137 MG/DL (70-110)
[2016-08-23 07:37] LABS: GLUCOSE COMMENT 1 Received Meds; GLUCOSE,POINT OF CARE 285 MG/DL (70-110)
[2016-08-23 08:10] VITALS: BP 166/69
[2016-08-23] MEDS: ISOSORBIDE MONONITRATE 30 MG ER TABLET PO SCH (08:39)
[2016-08-23] MEDS: METOPROLOL TARTRATE 50 MG TABLET PO SCH (08:39)
[2016-08-23] MEDS: LISINOPRIL 20 MG TABLET PO SCH (08:39)
[2016-08-23] MEDS: VITAMIN B COMP/VIT C/FOLIC ACID CAPSULE PO SCH (08:39)
[2016-08-23] MEDS: ASPIRIN 325 MG TABLET PO SCH (08:39)
[2016-08-23] MEDS: PANTOPRAZOLE SODIUM 40 MG/VIAL IVP SCH (08:40)
[2016-08-23] MEDS: FUROSEMIDE 20 MG/2 ML VIAL IVP SCH (08:40)
[2016-08-23] MEDS: EPOETIN ALFA 10,000 UNITS/ML VIAL SQ SCH (08:40)
[2016-08-23] MEDS: OXYGEN THERAPY IH SCH (08:46)
[2016-08-23 10:51] VITALS: BP 156/70
[2016-08-23] MEDS: SOD FERRIC GLUC COMPLX/SUCROSE 125 MG in SODIUM CHLORIDE 0.9% 100 ML IV SCH (11:22)
[2016-08-23 17:07] VITALS: BP 150/72
[2016-08-26 11:52] LABS: GLUCOSE,POINT OF CARE 150 MG/DL (70-110)
== END 2016-08-23 17:40 | disposition short-term general hospital (02) | DRG 280 ==
LOC: EMS 14:49 → ICU 19:59 → 5N 08-20 15:20
PROVIDERS: ADMIT Internal Medicine Geriatric Medicine; ATTEND Internal Medicine
PROC: 30243N1 Transfusion of Nonautologous Red Blood Cells into Central Vein, Percutaneous Approach (ICD-10-PCS; 2016-08-15)
PROC: 5A1D60Z (ICD-10-PCS; 2016-08-16)
PROC: 05HM33Z Insertion of Infusion Device into Right Internal Jugular Vein, Percutaneous Approach (ICD-10-PCS; 2016-08-16)
PROC: B543ZZA Ultrasonography of Right Jugular Veins, Guidance (ICD-10-PCS; 2016-08-16)
PROC: 4A023N7 Measurement of Cardiac Sampling and Pressure, Left Heart, Percutaneous Approach (ICD-10-PCS; 2016-08-19)
PROC: B211YZZ Fluoroscopy of Multiple Coronary Arteries using Other Contrast (ICD-10-PCS; 2016-08-19)
PROC: B215YZZ Fluoroscopy of Left Heart using Other Contrast (ICD-10-PCS; 2016-08-19)
PROC: 02H633Z Insertion of Infusion Device into Right Atrium, Percutaneous Approach (ICD-10-PCS; principal; 2016-08-21)
PROC: B244ZZZ Ultrasonography of Right Heart (ICD-10-PCS; 2016-08-21)
DX: I21.4 Non-ST elevation (NSTEMI) myocardial infarction (principal); J96.01 Acute respiratory failure with hypoxia; N18.6 End stage renal disease; N17.9 Acute kidney failure, unspecified; K92.2 Gastrointestinal hemorrhage, unspecified; N39.0 Urinary tract infection, site not specified; I13.2 Hypertensive heart and chronic kidney disease with heart failure and with stage 5 chronic kidney disease, or end stage renal disease; I50.1 Left ventricular failure, unspecified; E83.39 Other disorders of phosphorus metabolism; E11.21 Type 2 diabetes mellitus with diabetic nephropathy; E11.22 Type 2 diabetes mellitus with diabetic chronic kidney disease; D50.0 Iron deficiency anemia secondary to blood loss (chronic); B96.20 Unspecified Escherichia coli [E. coli] as the cause of diseases classified elsewhere; E78.5 Hyperlipidemia, unspecified; Z99.2 Dependence on renal dialysis; Z79.82 Long term (current) use of aspirin; Z79.899 Other long term (current) drug therapy; Z88.2 Allergy status to sulfonamides
CPT/HCPCS: 36245; 36561; 76937; 82271; 82306; 82607; 82746; 82805; 82962; 83036; 83540; 83550; 83735; 84100; 84439; 84443; 85014; 85018; 86850; 86900; 86901; 86920; 87040; 87081; 87086; 87340; 90935; 93005; 93306; 93308; 94640; 96374; 96375; 99291; C9113; J0360; J0696; J0885; J1644; J1940; J2250; J2405; J2916; J3010; J3475; J3490; J7030; J7040; J7050; J7060; P9016; Q9967

== ENCOUNTER 2023-03-11 06:18 | Emergency (ER) | payer MEDICARE, MEDICAID ==
[~2023-03-11] VITALS: Ht 154.9 cm; Wt 62.5 kg
[~2023-03-11 06:18] MED LIST changes: -ACAR50TA11 PO; +AMLO-258 PO; -AMLO-512 PO; +ASPI-1450 PO; -DOXA2TAB PO; -FERR-72 PO; +FOLI1CAP2 PO; +HYDR-4723 PO; +INSLAN SQ; +INSNOV SQ; -KRIL500C PO; +LISI-894 PO; -METO25 PO; +METO50 PO; -NATE120 PO; +PANT40VI14 IV; -PHOSLOC PO; +SEVE800T17 PO; +TICA60TA PO
[2023-03-11 08:00] LABS: BASOPHILS % (AUTO) 0.4 % (0.0-2.0); EOSINOPHILS % (AUTO) 3.1 % (1.0-6.0); HEMATOCRIT 28.7 % (36-46); HEMOGLOBIN 9.2 g/dL (12.0-16.0); LYMPHOCYTES # (AUTO) 1.1 K/uL (1.0-4.8); MEAN CORPUSCULAR HEMOGLOBIN 32.8 pg (26.0-34.0); MEAN CORPUSCULAR HGB CONC 32.2 G/dL (31.0-37.0); MEAN CORPUSCULAR VOLUME 102 fL (80-100); MONOCYTES # (AUTO) 0.8 K/uL (0.1-1.0); MONOCYTES % (AUTO) 7.1 % (2.0-9.0); NEUTROPHILS # (AUTO) 8.9 K/uL (1.8-7.7); NEUTROPHILS % (AUTO) 79.4 % (40.0-70.0); PLATELET COUNT (AUTO) 310 K/uL (150-450); RED BLOOD CELL COUNT(AUTO) 2.81 MIL/uL (4.00-5.20); RED CELL DISTRIBUTION WIDTH 15.1 % (11.5-14.5); WHITE BLOOD COUNT (AUTO) 11.2 K/uL (4.5-11.0)
[2023-03-11 08:16] LABS: PROTHROMBIN TIME 10.1 SEC (9.4-11.6)
[2023-03-11 08:18] LABS: CALCIUM, TOTAL 9.9 mg/dL (8.8-10.5); CREATININE 9.72 mg/dL (0.60-1.30); POTASSIUM 5.6 mmol/L (3.5-5.1)
[2023-03-11 08:23] LABS: ALBUMIN 3.6 g/dL (3.4-5.0); BILIRUBIN,TOTAL 0.6 mg/dL (0.1-1.0); TOTAL PROTEIN, SERUM 7.6 g/dL (6.4-8.2)
[2023-03-11 08:30] LABS: RBC MORPHOLOGY COMMENT ABNORMAL RBC MORPH
[2023-03-11 08:43] VITALS: BP 155/81; PULSE 63; RESP 18; TEMP 98.1
== END 2023-03-11 09:13 | disposition home or self-care (01) ==
LOC: EMS 06:18
DX: I73.89 Other specified peripheral vascular diseases (principal); N18.6 End stage renal disease; E11.9 Type 2 diabetes mellitus without complications; I11.0 Hypertensive heart disease with heart failure; I50.9 Heart failure, unspecified; E78.00 Pure hypercholesterolemia, unspecified; I25.2 Old myocardial infarction; I25.10 Atherosclerotic heart disease of native coronary artery without angina pectoris; Z88.2 Allergy status to sulfonamides
CPT/HCPCS: 71045; 80053; 85025; 85610; 93005; 93926; 93971; 99285; 36415-L1; 36415-TC

== ENCOUNTER 2025-02-15 09:43 | Inpatient (IN) | payer MEDICARE, MEDICAID ==
[~2025-02-15] VITALS: Ht 154.9 cm; Wt 60.5 kg
[~2025-02-15 09:43] MED LIST changes: -FURO40 PO; +FURO40TA6 PO; +HYDR-4062 PO; -HYDR-4723 PO; -PANT40VI14 IV; +PANT40VI15 IV; -SEVE800T17 PO; +SEVE800T39 PO
[2025-02-15 10:11] LABS: GLUCOMETER DEV NAME(LOC) ER.7; GLUCOSE,POINT OF CARE 152 MG/DL (70-110)
[2025-02-15] MEDS: VANCOMYCIN 1.25 GM/WATER(PEG) 250 ML IV ONE (10:44)
[2025-02-15] MEDS: CEFEPIME HCL 2 GM in DEXTROSE 5%-WATER 50 ML IV ONE (10:44)
[2025-02-15 10:49] LABS: PLATELET COUNT (AUTO) 301 K/uL (150-450); RED BLOOD CELL COUNT(AUTO) 3.22 MIL/uL (4.00-5.20); RED CELL DISTRIBUTION WIDTH 15.2 % (11.5-14.5); WHITE BLOOD COUNT (AUTO) 10.7 K/uL (4.5-11.0)
[2025-02-15 10:54] LABS: CALCIUM, TOTAL 8.8 mg/dL (8.8-10.5); CREATININE 9.22 mg/dL (0.60-1.30); GLOMERULAR FILTR. RATE CALC 4.0 mL/min (>60); GLUCOSE,RANDOM 137.0 mg/dL (70-110); SODIUM SERUM 134.0 mmol/L (136-145); UREA NITROGEN, BLOOD 61.0 mg/dL (7-18)
[2025-02-15 11:16] LABS: ERYTHROCYTE SEDIMENTATION RATE 35 MM/HR (0-30)
[2025-02-15] MEDS ORDERED: ZOLPIDEM TARTRATE 5 MG TABLET PO PRN (16:00)
[2025-02-15] MEDS ORDERED: ONDANSETRON HCL 4 MG/2 ML VIAL IVP PRN (16:00)
[2025-02-15] MEDS ORDERED: BISACODYL 10 MG RECTAL RECTAL SUPPOSITORY PR PRN (16:00)
[2025-02-15] MEDS: SODIUM POLYSTYRENE SULFONATE 15 GM/60 ML SUSPENSION BOTTLE PO ONE (16:21)
[2025-02-15] MEDS: HEPARIN SODIUM,PORCINE 5,000 UNITS/ML VIAL SQ SCH (16:22)
[2025-02-15] MEDS ORDERED: VANCOMYCIN 1GM/WATER(PEG/NADA) 200 ML IV PRN (16:30)
[2025-02-15] MEDS ORDERED: SODIUM CHLORIDE 0.9% 500 ML IV ONE (17:05)
[2025-02-15 17:37] VITALS: BP 170/58; PULSE 69; RESP 18; TEMP 97.9; O2SAT 96
[2025-02-15] MEDS: SEVELAMER CARBONATE 800 MG TABLET PO SCH (19:06)
[2025-02-15] MEDS: PIPERACILLIN SODIUM/TAZOBACTAM 2.25 GM in DEXTROSE 5%-WATER 50 ML IV SCH (19:06)
[2025-02-15 19:47] VITALS: BP 146/58; PULSE 72; RESP 18; TEMP 99.1; O2SAT 96
[2025-02-15] MEDS: ATORVASTATIN CALCIUM 40 MG TABLET PO SCH (21:00)
[2025-02-15] MEDS: METOPROLOL TARTRATE 50 MG TABLET PO SCH (21:00)
[2025-02-15] MEDS: CINACALCET HCL 30 MG TABLET PO SCH (21:00)
[2025-02-15] MEDS: DOCUSATE SODIUM 100 MG CAPSULE PO SCH (21:00)
[2025-02-15] MEDS ORDERED: SODIUM CHLORIDE 0.9% 2,000 ML ONE (23:27)
[2025-02-15 23:45] VITALS: BP 168/52; PULSE 80; RESP 18; TEMP 98; O2SAT 99
[2025-02-15 23:50] VITALS: BP 163/63; PULSE 81; RESP 18; O2SAT 98
[2025-02-16] VITALS (10 sets, daily range): BP systolic 105–170; BP diastolic 38–68; PULSE 58–82; RESP 18; TEMP 97.9–99.5; O2SAT 96–100
[2025-02-16] MEDS: HYDROCODONE/ACETAMINOPHEN 5-325 MG TABLET PO PRN (03:36)
[2025-02-16] MEDS: EPOETIN ALFA 10,000 UNITS/ML 2 ML VIAL SQ SCH (03:39)
[2025-02-16 06:06] LABS: CALCIUM, TOTAL 8.9 mg/dL (8.8-10.5); CREATININE 4.59 mg/dL (0.60-1.30); GLOMERULAR FILTR. RATE CALC 9.0 mL/min (>60); GLUCOSE,RANDOM 99.0 mg/dL (70-110); SODIUM SERUM 136.0 mmol/L (136-145); UREA NITROGEN, BLOOD 22.0 mg/dL (7-18)
[2025-02-16 06:11] LABS: PLATELET COUNT (AUTO) 281 K/uL (150-450); RED BLOOD CELL COUNT(AUTO) 3.16 MIL/uL (4.00-5.20); RED CELL DISTRIBUTION WIDTH 15.3 % (11.5-14.5); WHITE BLOOD COUNT (AUTO) 11.1 K/uL (4.5-11.0)
[2025-02-16 08:16] LABS: RBC MORPHOLOGY COMMENT ABNORMAL RBC MORPH
[2025-02-16] MEDS: FUROSEMIDE 40 MG TABLET PO SCH (08:21)
[2025-02-16] MEDS: FOLIC ACID/VIT B COMPLEX AND C TABLET PO SCH (08:21)
[2025-02-16] MEDS: PANTOPRAZOLE SODIUM 40 MG DR TABLET PO SCH (08:21)
[2025-02-16] MEDS: ASPIRIN 81 MG CHEWABLE TABLET PO SCH (08:21)
[2025-02-16] MEDS: INSULIN GLARGINE,HUM.REC.ANLOG 100 UNITS/ML SQ SCH (08:46)
[2025-02-16 09:36] LABS: GLUCOMETER DEV NAME(LOC) 6S.2; GLUCOSE,POINT OF CARE 95 MG/DL (70-110)
[2025-02-16] MEDS ORDERED: RINGERS SOLUTION,LACTATED 1,000 ML IV ONE (10:08)
[2025-02-16 11:35] LABS: GLUCOMETER DEV NAME(LOC) 6N.2C; GLUCOSE,POINT OF CARE 85 MG/DL (70-110)
[2025-02-16] MEDS: CHLORHEXIDINE GLUCONATE 2% TOWELETTE [2'S/6'S] TP ONE (11:52)
[2025-02-16] MEDS: ETHYL ALCOHOL 62% ANTISEPTIC NASAL SANITIZER 0.6 ML AMPUL NASAL ONE (11:52)
[2025-02-16] MEDS: RINGERS SOLUTION,LACTATED 1,000 ML IV ONE (11:54)
[2025-02-16] MEDS ORDERED: PROPOFOL 1% ISO-OSM 1000 MG/100 ML BOTTLE ONE (12:00)
[2025-02-16] MEDS ORDERED: LIDOCAINE/PF 2% 5 ML VIAL ONE ×2 (12:00)
[2025-02-16 12:20] LABS: GLUCOMETER DEV NAME(LOC) SDS.; GLUCOSE,POINT OF CARE 81 MG/DL (70-110)
[2025-02-16] MEDS: LIDOCAINE/PF 2% 5 ML VIAL ONE (12:50)
[2025-02-16] MEDS: BUPIVACAINE HCL/PF 0.5% 30 ML VIAL ONE (12:50)
[2025-02-16] MEDS ORDERED: DEXTROSE 50%-WATER 25 GM/50 ML SYRINGE IVP PRN (15:30)
[2025-02-16 22:41] LABS: GLUCOMETER DEV NAME(LOC) 6S.2; GLUCOSE,POINT OF CARE 181 MG/DL (70-110)
[2025-02-17] VITALS (16 sets, daily range): BP systolic 120–172; BP diastolic 35–98; PULSE 58–76; RESP 18–20; TEMP 97–98.6; O2SAT 92–96
[2025-02-17] MEDS: MORPHINE SULFATE 2 MG/ML SYRINGE IVP PRN (02:46)
[2025-02-17 06:46] LABS: GLUCOMETER DEV NAME(LOC) 6N.2C; GLUCOSE,POINT OF CARE 98 MG/DL (70-110)
[2025-02-17] MEDS ORDERED: SODIUM CHLORIDE 0.9% 1,000 ML ONE ×2 (09:25→09:26)
[2025-02-17 10:04] LABS: CALCIUM, TOTAL 9.0 mg/dL (8.8-10.5); CREATININE 7.08 mg/dL (0.60-1.30); GLOMERULAR FILTR. RATE CALC 6.0 mL/min (>60); GLUCOSE,RANDOM 194.0 mg/dL (70-110); SODIUM SERUM 134.0 mmol/L (136-145); UREA NITROGEN, BLOOD 42.0 mg/dL (7-18)
[2025-02-17 10:07] LABS: PLATELET COUNT (AUTO) 277 K/uL (150-450); RED BLOOD CELL COUNT(AUTO) 3.15 MIL/uL (4.00-5.20); RED CELL DISTRIBUTION WIDTH 15.5 % (11.5-14.5); WHITE BLOOD COUNT (AUTO) 10.2 K/uL (4.5-11.0)
[2025-02-17 10:35] LABS: RBC MORPHOLOGY COMMENT ABNORMAL RBC MORPH
[2025-02-17] MEDS: ISOSORBIDE MONONITRATE 30 MG ER TABLET PO ONE (11:45)
[2025-02-17 12:11] LABS: GLUCOMETER DEV NAME(LOC) 6N.2C; GLUCOSE,POINT OF CARE 132 MG/DL (70-110)
[2025-02-17] MEDS ORDERED: SIMETHICONE 80 MG CHEWABLE TABLET CHEW PRN (14:30)
[2025-02-17] MEDS: VANCOMYCIN 1GM/WATER(PEG/NADA) 200 ML IV ONE (16:18)
[2025-02-17] MEDS: ACETAMINOPHEN 500 MG TABLET PO SCH (16:18)
[2025-02-17] MEDS: INSULIN LISPRO 100 UNITS/ML SQ PRN (20:30)
[2025-02-17] MEDS ORDERED: NALOXONE HCL 1 MG/ML 2 ML SYRINGE IVP PRN (22:45)
[2025-02-18 05:18] VITALS: BP 147/44; PULSE 70; RESP 18; TEMP 98.2; O2SAT 94
[2025-02-18] MEDS: MAGNESIUM HYDROXIDE SUSPENSION 30 ML UDCUP PO PRN (05:20)
[2025-02-18 05:21] LABS: GLUCOMETER DEV NAME(LOC) 4E.2; GLUCOSE,POINT OF CARE 265 MG/DL (70-110)
[2025-02-18 06:51] LABS: PLATELET COUNT (AUTO) 289 K/uL (150-450); RED BLOOD CELL COUNT(AUTO) 3.09 MIL/uL (4.00-5.20); RED CELL DISTRIBUTION WIDTH 15.5 % (11.5-14.5); WHITE BLOOD COUNT (AUTO) 11.0 K/uL (4.5-11.0)
[2025-02-18 07:09] LABS: RBC MORPHOLOGY COMMENT ABNORMAL RBC MORPH
[2025-02-18 07:10] LABS: GLUCOMETER DEV NAME(LOC) 6N.1B; GLUCOSE,POINT OF CARE 137 MG/DL (70-110)
[2025-02-18 07:19] LABS: CALCIUM, TOTAL 8.2 mg/dL (8.8-10.5); CREATININE 4.29 mg/dL (0.60-1.30); GLOMERULAR FILTR. RATE CALC 10.0 mL/min (>60); GLUCOSE,RANDOM 139.0 mg/dL (70-110); SODIUM SERUM 135.0 mmol/L (136-145); UREA NITROGEN, BLOOD 29.0 mg/dL (7-18)
[2025-02-18 08:01] VITALS: BP 114/63; PULSE 86; RESP 20; TEMP 98.8; O2SAT 93
[2025-02-18 11:36] LABS: GLUCOMETER DEV NAME(LOC) 4E.2; GLUCOSE,POINT OF CARE 165 MG/DL (70-110)
[2025-02-18 12:05] LABS: GLUCOMETER DEV NAME(LOC) 6N.1B; GLUCOSE,POINT OF CARE 209 MG/DL (70-110)
[2025-02-18] MEDS: ACETAMINOPHEN 325 MG TABLET PO PRN (12:16)
[2025-02-18 15:36] VITALS: BP 124/54; PULSE 62; RESP 18; TEMP 97.9; O2SAT 94
[2025-02-18 18:20] LABS: GLUCOMETER DEV NAME(LOC) 6S.1D; GLUCOSE,POINT OF CARE 166 MG/DL (70-110)
[2025-02-18 19:40] VITALS: BP 129/51; PULSE 65; RESP 18; TEMP 98.1; O2SAT 94
[2025-02-19] VITALS (13 sets, daily range): BP systolic 120–160; BP diastolic 35–82; PULSE 60–79; RESP 17–19; TEMP 97.7–98.1; O2SAT 95–99
[2025-02-19] MEDS ORDERED: SODIUM CHLORIDE 0.9% 2,000 ML ONE ×2 (07:38→08:16)
[2025-02-19] MEDS ORDERED: AMOX1TAB15 PO (11:31)
[2025-02-19] MEDS ORDERED: GABA-1216 PO (11:38)
[2025-02-19 14:35] LABS: GLUCOMETER DEV NAME(LOC) 4E.2; GLUCOSE,POINT OF CARE 113 MG/DL (70-110)
[2025-02-19 17:21] LABS: GLUCOMETER DEV NAME(LOC) 6N.1B; GLUCOSE,POINT OF CARE 147 MG/DL (70-110)
[2025-02-19 17:31] LABS: GLUCOMETER DEV NAME(LOC) 6S.1D; GLUCOSE,POINT OF CARE 125 MG/DL (70-110)
[2025-02-20] MEDS ORDERED: VANCOMYCIN 1GM/WATER(PEG/NADA) 200 ML IV ONE (08:00)
== END 2025-02-19 15:15 | disposition home health service (06) | DRG 255 ==
LOC: EMS 09:54 → EDH 13:53 → 6S 16:57 → 4E 02-17 16:15
PROVIDERS: ADMIT Internal Medicine; ATTEND Internal Medicine
PROC: 5A1D70Z Performance of Urinary Filtration, Intermittent, Less than 6 Hours Per Day (ICD-10-PCS; 2025-02-15)
PROC: 0Y6Q0Z0 Detachment at Left 1st Toe, Complete, Open Approach (ICD-10-PCS; principal; 2025-02-16 12:35)
PROC: 5A1D70Z Performance of Urinary Filtration, Intermittent, Less than 6 Hours Per Day (ICD-10-PCS; 2025-02-17)
PROC: 5A1D70Z Performance of Urinary Filtration, Intermittent, Less than 6 Hours Per Day (ICD-10-PCS; 2025-02-19)
DX: E11.52 Type 2 diabetes mellitus with diabetic peripheral angiopathy with gangrene (principal); N18.6 End stage renal disease; L03.116 Cellulitis of left lower limb; I13.2 Hypertensive heart and chronic kidney disease with heart failure and with stage 5 chronic kidney disease, or end stage renal disease; J96.11 Chronic respiratory failure with hypoxia; N25.81 Secondary hyperparathyroidism of renal origin; M86.8X7 Other osteomyelitis, ankle and foot; E11.69 Type 2 diabetes mellitus with other specified complication; E11.22 Type 2 diabetes mellitus with diabetic chronic kidney disease; I25.10 Atherosclerotic heart disease of native coronary artery without angina pectoris; D64.9 Anemia, unspecified; E78.00 Pure hypercholesterolemia, unspecified; G89.18 Other acute postprocedural pain; E87.6 Hypokalemia; I70.229 Atherosclerosis of native arteries of extremities with rest pain, unspecified extremity; Z99.2 Dependence on renal dialysis; Z79.82 Long term (current) use of aspirin; Z79.899 Other long term (current) drug therapy; Z88.2 Allergy status to sulfonamides; Z95.5 Presence of coronary angioplasty implant and graft; Z95.1 Presence of aortocoronary bypass graft; Z93.3 Colostomy status; I25.2 Old myocardial infarction
CPT/HCPCS: 71045; 73718; 80048; 80202; 82962; 85025; 85610; 85651; 85730; 86140; 86850; 86900; 86901; 87040; 87070; 87081; 87186; 87205; 87340; 88305; 88311; 90935; 97163; 97166; 97530; 97535; 99285; G0378; J0692; J0885; J1644; J1815; J2270; J2543; J2704; J3490; J7030; J7040; J7060; J7120; 36415-L1; 36415-TC; Z7610